=== PATIENT | male | born 1955 | race Caucasian/White ===

== ENCOUNTER 2023-07-14 14:05 | Outpatient (CLI) | payer MEDICARE, SELFPAY ==
[2023-07-14 14:37] LABS: Basophils % 0.8 % (0.1-2.0); Eosinophils # 0.2 K/mm3 (0.0-0.4); Eosinophils % 3.8 % (0.1-12.0); Hematocrit 45.4 % (42.0-52.0); Hemoglobin 15.5 g/dL (14.1-18.0); Lymphocytes # 0.9 K/mm3 (0.7-4.5); Lymphocytes % 21.3 % (10-50); Mean Corpuscular HGB Conc 34.1 g/dL (31.8-35.4); Mean Corpuscular Hemoglobin 32.8 pg (27.0-31.2); Mean Corpuscular Volume 96.2 fl (80-94); Mean Platelet Volume 7.9 fl (7.4-10.4); Monocytes # 0.3 K/mm3 (0.1-1.0); Monocytes % 7.4 % (1.7-9.3); Neutrophils # 2.7 K/mm3 (1.8-7.8); Neutrophils % 66.8 % (37.0-80.0); Platelet Count 73 K/mm3 (142-424); Red Blood Count 4.72 M/mm3 (4.60-6.20); Red Cell Distribution Width 14.9 % (11.5-17.5)
[2023-07-14 15:47] LABS: Vitamin B12 772 pg/mL (239-931)
== END 2023-07-14 23:59 ==
PROVIDERS: PCP Internal Medicine Adolescent Medicine; Visit Provider Internal Medicine Medical Oncology
DX: D75.1 Secondary polycythemia (principal)
CPT/HCPCS: 36415; 82607; 82746; 85025

== ENCOUNTER 2023-10-14 10:52 | Outpatient (CLI) | payer MEDICARE, OTHER, SELFPAY ==
[2023-10-14 11:00] VITALS: BMI 40.6
[2023-10-14 12:09] LABS: Basophils % 0.8 % (0.1-2.0); Eosinophils # 0.1 K/mm3 (0.0-0.4); Hematocrit 44.9 % (42.0-52.0); Hemoglobin 15.4 g/dL (14.1-18.0); Lymphocytes # 0.8 K/mm3 (0.7-4.5); Lymphocytes % 15.5 % (10-50); Mean Corpuscular HGB Conc 34.4 g/dL (31.8-35.4); Mean Corpuscular Hemoglobin 34.1 pg (27.0-31.2); Mean Corpuscular Volume 99.3 fl (80-94); Mean Platelet Volume 7.7 fl (7.4-10.4); Monocytes # 0.4 K/mm3 (0.1-1.0); Monocytes % 6.5 % (1.7-9.3); Neutrophils # 4.1 K/mm3 (1.8-7.8); Neutrophils % 75.2 % (37.0-80.0); Platelet Count 91 K/mm3 (142-424); Red Blood Count 4.52 M/mm3 (4.60-6.20); Red Cell Distribution Width 15.8 % (11.5-17.5); White Blood Count 5.4 K/mm3 (4.8-10.8)
[2023-10-14 13:05] LABS: Vitamin B12 776 pg/mL (239-931)
[2023-10-14 13:29] LABS: Folate 9.28 ng/mL
== END 2023-10-14 11:19 | disposition home or self-care (01) ==
PROVIDERS: PCP Internal Medicine Adolescent Medicine; Visit Provider Internal Medicine Medical Oncology
DX: D69.59 Other secondary thrombocytopenia (principal); D72.819 Decreased white blood cell count, unspecified; K74.60 Unspecified cirrhosis of liver; D73.2 Chronic congestive splenomegaly
CPT/HCPCS: 36415; 82607; 82746; 85025